=== PATIENT | female | born 1965 | race Caucasian/White ===

== ENCOUNTER 2018-06-04 13:46 | Emergency (ER) | payer OTHER ==
[~2018-06-04] VITALS: Ht 165.1 cm; Wt 89.8 kg
== END 2018-06-04 13:54 | disposition home or self-care (01) ==
LOC: ED 13:46
DX: L02.01 Cutaneous abscess of face (principal); Z79.899 Other long term (current) drug therapy

== ENCOUNTER → 2018-06-04 | Outpatient (CLI) | payer OTHER ==
[~2018-06-04] MED LIST: BACLOFEN10 MG PO; BACTRIM DS 8001 TA1 PO; BAYER ASPIRIN C81 MG PO; CELEBREX50 MG; CLINDAMYCIN HC150 MG PO; CORTISPORIN SUS10 ML OT; CYMBALTA60 MG PO; FUROSEMIDE20 M1 PO; HYDROCHLOROTHIA25 M1 PO; IBU800 M1 PO; IBU800 MG PO; LIPITOR20 MG PO; MOTRIN800 MG PO; MS CONTIN15 MG PO; NEURONTIN300 MG PO; NORCO 325 MG-51 TAB PO; OXYCODONE5 MG PO; PEN-VK500 MG PO; PERIDEX 480 ML480 ML PO; POTASSIUM CHLO20 ME3 PO; PROVENTIL0.09 MG/AC IH; TRAZODONE50 MG PO; ULTRAM50 MG PO; ZITHROMAX Z PA250 MG PO; [UNRECOGNIZED DRUG - OTHER] PO; [UNRECOGNIZED DRUG - REMARK]
== END | disposition home or self-care (01) ==
LOC: WOUNDCARE 02:56
DX: L02.01 Cutaneous abscess of face (principal); L03.211 Cellulitis of face; I10 Essential (primary) hypertension; M32.9 Systemic lupus erythematosus, unspecified; F17.200 Nicotine dependence, unspecified, uncomplicated

== ENCOUNTER → 2024-01-02 | Outpatient (CLI) | payer OTHER ==
[2024-01-02 11:40] LABS: BASO # 0.1 10*3/uL (0.0-0.1); EOS # 0.1 10*3/uL (0.0-0.4); HEMATOCRIT 39.8 % (37.0-47.0); LYMPH # 2.6 10*3/uL (1.3-4.4); LYMPH % 25.2 % (27.0-41.0); MEAN CELL VOLUME 95.7 fl (81.0-99.0); MEAN CORPUSCULAR HGB CONC 32.4 g/dl (33.0-37.0); MEAN PLATELET VOLUME 10.7 fl (9.6-12.3); MONO # 0.7 10*3/uL (0.1-1.0); MONO % 6.7 % (3.0-9.0); NEUT # 6.9 10*3/uL (2.3-7.9); NEUT % 65.7 % (47.0-73.0); PLATELET COUNT AUTOMATED 427 10*3/uL (130-400); RED BLOOD COUNT 4.16 10*6/uL (4.10-5.10); RED CELL DISTRI WIDTH 12.9 % (0-14.5); WHITE BLOOD COUNT 10.5 10*3/uL (4.8-10.8)
[2024-01-02 12:10] LABS: ALKALINE PHOSPHATASE 78 U/L (46-116); BUN 12 mg/dl (9-23); CHLORIDE 110 mmol/L (98-107); CHOLESTEROL 208 mg/dL (<200); LDL CHOLESTEROL 144 mg/dL (9-159); POTASSIUM 3.7 mmol/L (3.4-5.1); SGPT/ALT 12 U/L (5-49); TOTAL PROTEIN 7.1 gm/dL (6.0-8.0); TRIGLYCERIDES 129 mg/dl (<150)
[2024-01-02 12:15] LABS: VITAMIN D, 25-HYDROXY 25.9 ng/mL (30-100)
== END | disposition home or self-care (01) ==
LOC: LAB 11:07
PROVIDERS: ATTEND Nurse Practitioner Family
DX: Z13.0 Encounter for screening for diseases of the blood and blood-forming organs and certain disorders involving the immune mechanism (principal); Z13.228 Encounter for screening for other metabolic disorders; E53.8 Deficiency of other specified B group vitamins; Z13.220 Encounter for screening for lipoid disorders; Z76.89 Persons encountering health services in other specified circumstances

== ENCOUNTER 2024-12-16 10:42 | Emergency (ER) | payer SELFPAY ==
[~2024-12-16] VITALS: Ht 162.5 cm; Wt 73.5 kg
[2024-12-16] MEDS ORDERED: traMADol Hydrochloride 50 MG TAB PO ONE (11:15)
[2024-12-16] MEDS ORDERED: PERCOCET 5-3251 EACH PO (12:44)
== END 2024-12-16 13:20 | disposition home or self-care (01) ==
LOC: ED 10:42
DX: S92.514A Nondisplaced fracture of proximal phalanx of right lesser toe(s), initial encounter for closed fracture (principal); Z79.899 Other long term (current) drug therapy; Z98.890 Other specified postprocedural states; Z90.49 Acquired absence of other specified parts of digestive tract; W17.89XA Other fall from one level to another, initial encounter; Y93.89 Activity, other specified; Y92.89 Other specified places as the place of occurrence of the external cause; Y99.8 Other external cause status